=== PATIENT | female | born 1985 | race African-American/Black ===

== ENCOUNTER 2019-05-24 14:21 | Emergency (ER) | payer MEDICAID ==
[~2019-05-24] VITALS: Ht 162.6 cm; Wt 75.8 kg
[~2019-05-24 14:21] MED LIST: IBUP-1222 PO; METH750T87 PO
[2019-05-24 14:27] VITALS: BP 99/57
[2019-05-24] MEDS ORDERED: KETOROLAC 30 MG/1 ML ONE (14:55)
[2019-05-24] MEDS ORDERED: METHOCARBAMOL 750 MG TABLET ONE (14:55)
--- NOTE | 2019-05-24 14:59 | NUR ---
PT IN RADIOLOGY AT THIS TIME.
[2019-05-24] MEDS ORDERED: METHOCARBAMOL 750 MG TABLET PO ONE (15:00)
[2019-05-24] MEDS ORDERED: KETOROLAC 30 MG/1 ML IM ONE (15:00)
--- NOTE | 2019-05-24 15:06 | NUR ---
REPORT GIVEN TO KENA NAZARIO, PT IN RADIOLOGY AT THIS TIME.
[2019-05-24] MEDS ORDERED: HYDROcodone/APAP 5/325 TABLET ONE (16:20)
[2019-05-24] MEDS ORDERED: HYDROcodone/APAP 5/325 TABLET PO ONE (16:30)
[2019-05-24 16:44] LABS: MICROSCOPIC INDICATED
--- NOTE | 2019-05-24 17:04 | NUR ---
Patient given discharge instructions and they have confirmed that they understand the instructions. Patient ambulatory with steady gait. Pt left with d/c paperwork, Rx, and all personal belongings.
== END 2019-05-24 17:06 | disposition home or self-care (01) ==
LOC: ED 16:45
DX: S39.012A Strain of muscle, fascia and tendon of lower back, initial encounter (principal); N30.00 Acute cystitis without hematuria; X58.XXXA Exposure to other specified factors, initial encounter; Y93.89 Activity, other specified; Y92.89 Other specified places as the place of occurrence of the external cause; Y99.8 Other external cause status
CPT/HCPCS: 72110; 81001; 96372; 99284; J1885